=== PATIENT | female | born 1995 ===

== ENCOUNTER 2021-07-13 15:15 | Inpatient (IN) | payer OTHER ==
[~2021-07-13] VITALS: Ht 165.1 cm; Wt 94.3 kg
[2021-07-31] MEDS ORDERED: PRENATAL CAPLE1 EAC1 PO (15:45)
== END 2021-08-02 16:41 | disposition home or self-care (01) | DRG 807 ==
LOC: LDR 07-31 12:53 → OB/GYN 08-01 14:29
PROVIDERS: ADMIT Obstetrics & Gynecology; ATTEND Obstetrics & Gynecology
PROC: 10E0XZZ Delivery of Products of Conception, External Approach (ICD-10-PCS; principal; 2021-07-31)
PROC: 10907ZC Drainage of Amniotic Fluid, Therapeutic from Products of Conception, Via Natural or Artificial Opening (ICD-10-PCS; 2021-07-31)
PROC: 3E0P7VZ Introduction of Hormone into Female Reproductive, Via Natural or Artificial Opening (ICD-10-PCS; 2021-07-31)
PROC: 4A1HXFZ Monitoring of Products of Conception, Cardiac Rhythm, External Approach (ICD-10-PCS; 2021-07-31)
DX: O99.12 Other diseases of the blood and blood-forming organs and certain disorders involving the immune mechanism complicating childbirth (principal); Z37.0 Single live birth; D69.6 Thrombocytopenia, unspecified; O99.824 Streptococcus B carrier state complicating childbirth; Z3A.39 39 weeks gestation of pregnancy